=== PATIENT | female | born 2005 | race Caucasian/White ===

== ENCOUNTER 2024-07-13 16:19 | Emergency (ER) | payer OTHER, SELFPAY ==
[2024-07-13 16:21] VITALS: BP 116/85
--- NOTE | 2024-07-13 16:21 | ED.GENMED ---
ED Provider Triage
-
Patient seen by provider in Triage?: Seen in Triage
Attestation: A medical screening examination has been initiated by a qualified medical provider. Based on the assessment performed at this time, it has been determined that an emergent medical condition may exist and the patient has been informed
that further medical evaluation and possible additional diagnostic testing may be needed.
HPI: 18-year-old female presenting emergency department for evaluation of persistent nausea and vomiting. Patient saw her primary care provider for this and was started on Prilosec and given a prescription for an ultrasound. Today she was unable
to even keep down liquids which is why she presented to the emergency room. No fevers. Does not believe to be . Patient does endorse using cannabis nightly. She does not feel it gets worse when she uses cannabis.
GENERAL: Alert , in no apparent distress
EYE: No visual abnormalities.
NECK: Trachea midline
ENT: No visible abnormalities.
LUNGS: No acute respiratory distress
NEUROLOGICAL: Alert and oriented
SKIN: Skin intact. No visible changes.
MUSCULOSKELETAL: Moving extremities normally
PSYCH: Normal and appropriate interaction.
This is a medical evaluation conducted in person to initiate diagnostic evaluation and provide initial therapeutics. Please see further documentation by the treating clinician.
History of Present Illness
General
Chief Complaint: Abdominal Symptoms
Source: patient
Time Seen by Provider: 07/13/24 19:58
History of Present Illness
History of Present Illness:
18-year-old female with past medical history of anxiety, depression, eating disorder presenting the emergency department for evaluation of nausea and vomiting for the last 3 weeks usually occurring in the morning times, today started occurring more
with drinking fluids. Patient has been to primary care and started on Prilosec, recommended to have an outpatient abdominal ultrasound but has been unable to make this appointment as of yet. She denies any pain associated. No fevers, chills,
rigors, urinary symptoms or bowel changes. No history of similar. Patient notes that despite her eating disorder she still does eat and drink and is adamant she does not purge. Patient does note that she smokes marijuana nightly to help her sleep
but does not feel the marijuana is inducing her symptoms.
Past History
Past History
ED Past Medical History: Psychiatric
ED Past Surgical History: None
Social History
Tobacco: Non-smoker
Alcohol: None
Drug: Marijuana
Personal: Single
Living: with roommate
Employment: Student
Review of Systems
Review of Systems
All Other Systems: ROS reviewed and negative except as documented in HPI and ROS
Phy Exam
Physical Exam
Physical Exam:
GENERAL: Alert , in no apparent distress
EYE: clear conjunctiva b/l
HEAD: NCAT
ENT: o/p clr, mmm.
CARDIAC: Regular rate and rhythm .
LUNGS: Clear breath sounds bilaterally, no acute respiratory distress, no wheezes/rales/rhonchi
ABDOMEN: Soft, normoactive bowel sounds, without focal tenderness, no r/g, no cvat, negative Peralta sign, no tenderness at McBurney's point
NEUROLOGICAL: Alert and oriented
SKIN: Warm and dry, skin intact.
MUSCULOSKELETAL: well perfused.
PSYCH: Normal and appropriate interaction.
Scores
Heart Failure Risk
Heart Failure Risk Score: Not Applicable
Heart Score for Chest Pain Patients
STEMI patient?: Not applicable
Withdrawal Assessment of Alcohol
Withdrawal Assessment Completed?: Not applicable
Course
Orders/Labs/Results
Orders:
Orders
07/13/24 16:21
Test Result ONCE
07/13/24 16:22
US Abdomen Complete/Upper Urgent
Comment:
Reason For Exam: persistent vomiting
07/13/24 16:29
Complete Blood Count/With Diff Urgent
Comprehensive Metabolic Panel Urgent
HCG, Serum Qualitative Screen Urgent
Lipase Urgent
07/13/24 16:55
Urinalysis Reflex To Culture Urgent
Date Specimen was Collected: 07/13/24
Time Specimen was Collected: 16:50
Urine Microscopic Reflex Cult Urgent
Urine Culture Urgent
JEANCARLOS Source: U
Specimen Description:
Date Specimen was Collected: 07/13/24
Time Specimen was Collected: 16:50
Abnormal Lab Results
07/13/24 07/13/24
16:29 16:55
MCH 32.8 H pg
(27.0-31.0)
MPV 11.1 H fL
(7.4-10.4)
Albumin 5.1 H g/dl
(3.5-5.0)
Urine Ketones 3+ A
(Negative)
Leukocyte Esterase Rfl 1+ A
(Negative)
Urine Bacteria (Reflex) Moderate A
(Negative)
07/13/24 16:29
07/13/24 16:29
Vital Signs
Initial and Last Documented VS:
Initial Vital Signs
Temp Pulse Resp BP Pulse Ox
98.8 F 95 20 116/85 100
07/13/24 16:21 07/13/24 16:21 07/13/24 16:21 07/13/24 16:21 07/13/24 16:21
Last Documented Vital Signs
Temp Pulse Resp BP Pulse Ox
97.8 F 95 16 122/78 99
07/13/24 19:29 07/13/24 19:29 07/13/24 19:29 07/13/24 19:29 07/13/24 19:29
MDM/Problems Addressed
Differential Diagnosis Includes:
GERD, gastritis, cannabinoid hyperemesis, dehydration, electrolyte derangement, , less concern for an acute surgical abdomen
MDM/Problems Addressed:
18-year-old female presenting to the emergency department for evaluation of nausea and vomiting that has been usually occurring in the morning times, today noticed the nausea and vomiting more with fluids prompting mom to bring patient to the ER for
further evaluation. Patient without fevers or infectious symptoms. No tenderness to palpation of the abdomen on exam. Labs and ultrasound imaging ordered. Disposition pending
*Radiology
Radiology exam reviewed: radiology read reviewed
*Pulse Oximetry
Patient hypoxic: no
*Critical Care Note
Total Time (30-74mins, 75-104mins- exclusive of procedures): Not Applicable
Patient Management
Escalation/DeEscalation of care consider admission/obs:
Patient's workup reassuring. No vomiting here. Tolerating p.o. Information for GI was provided for outpatient follow-up. Prescription for Zofran sent to pharmacy. Patient aware of return precautions but otherwise stable for discharge home.
ED Attending Note
-
Portions of this chart may have been created with voice recognition software.� Occasional wrong word or��sound alike� substitutions may have occurred due to the inherent limitations of voice recognition software.
Discharge Plan
Departure
Patient Disposition: Home (Routine Discharge)
Date of Disposition: 07/13/24
Time of Disposition: 19:57
Patient with high blood pressure during this ER visit?: No
Discharge Problem:
Nausea and vomiting
Instructions: Nausea and Vomiting, Adult (DC)
Prescriptions:
New
ondansetron 4 mg tablet,disintegrating
4 mg PO TIDPRN PRN (Reason: nausea/vomiting) Qty: 10 0RF
Referrals:
Erick Flower, DO [Active] - (GI - Please call for appointment)
Interventions
Interventions:
*Risk Screen - Suicide Last Done: 07/13/24 16:21
Discharge Date and Time
Print Language: BURMESE
[2024-07-13 16:42] LABS: % Basophils 0.5 % (0-2); % Eosinophils 1.3 % (0-6); % Immature Granulocytes 0.1 % (0-0.5); % Lymphocytes 23.7 % (20.5-51.1); % Neutrophils 68.4 % (42.2-75.2); Absolute Eosinophils 0.1 10^3/uL (0-0.7); Absolute Lymphocytes 1.8 10^3/uL (1.2-3.4); Absolute Monocytes 0.5 10^3/uL (0.1-0.6); Absolute Neutrophils 5.3 10^3/uL (1.4-6.5); Hematocrit 41.6 % (37.0-47.0); Hemoglobin 14.8 g/dL (12.0-16.0); Mean Corp Hgb Conc. 35.6 g/dL (33.0-37.0); Mean Corpuscular Hgb 32.8 pg (27.0-31.0); Mean Corpuscular Volume 92.2 fL (81.0-99.0); Mean Platelet Volume 11.1 fL (7.4-10.4); Nucleated Red Blood Cells % 0 %; Platelet Count 236 10^3/uL (130-400); Red Blood Cell Count 4.51 10^6/uL (4.20-5.40); Red Cell Dist. Width 11.9 % (11.5-14.5); White Blood Cell Count 7.8 10^3/uL (4.8-10.8)
[2024-07-13 16:53] LABS: HCG, Serum Qualitative Screen Negative
[2024-07-13 16:55] LABS: ALT (SGPT) 15 U/L (0-35); AST (SGOT) 20 U/L (14-36); Albumin 5.1 g/dl (3.5-5.0); Alkaline Phosphatase 62 U/L (38-126); Blood Urea Nitrogen 7 mg/dl (7-17); Calcium 9.6 mg/dl (8.4-10.2); Carbon Dioxide 27 mmol/L (22-30); Chloride 100 mmol/L (98-107); Glucose 96 mg/dl (70-99); Lipase 54 U/L (23-300); Potassium 4.1 mmol/L (3.5-5.1); Sodium 139 mmol/L (135-145); Total Bilirubin 0.8 mg/dl (0.2-1.3); Total Protein 7.7 g/dl (6.3-8.2)
[2024-07-13 17:04] LABS: eGFR > 60.00
[2024-07-13 17:07] LABS: Urine Albumin Negative (Neg - Trace); Urine Bilirubin Negative (Negative); Urine Character Clear (Clear); Urine Color Yellow; Urine Glucose Negative (Negative); Urine Ketone 3+ (Negative); Urine Leukocyte 1+ (Negative); Urine Nitrite Negative (Negative); Urine Occult Blood Negative (Negative); Urine Urobilinogen Negative (Neg - 1+)
[2024-07-13 17:16] LABS: Urine Bacteria Moderate (Negative); Urine Red Blood Cell 0-2 /HPF (0-2); Urine Squamous Cell >30 /LPF (Few)
[2024-07-13 19:29] VITALS: BP 122/78
== END 2024-07-13 20:54 | disposition home or self-care (01) ==
LOC: EMR 16:19
PROVIDERS: Physician Assistant Medical; EMERGENCY PHYSICIAN Emergency Medicine
DX: R11.2 Nausea with vomiting, unspecified (principal); F50.9 Eating disorder, unspecified; F41.9 Anxiety disorder, unspecified; F32.A Depression, unspecified
CPT/HCPCS: 99284; 76700; 80053; 81003; 81015; 83690; 84703; 85025; 87086